=== PATIENT | female | born 1955 | race Caucasian/White ===

== ENCOUNTER 2019-05-23 21:04 | Emergency (ER) | payer OTHER ==
[~2019-05-23] VITALS: Ht 165.1 cm; Wt 74.8 kg
[2019-05-23] MEDS ORDERED: NORCO 5-325 TA1 EAC1 PO (22:39)
[2019-05-23 23:23] VITALS: BP 130/86
== END 2019-05-23 23:24 | disposition home or self-care (01) ==
LOC: ER 21:04
DX: S92.212A Displaced fracture of cuboid bone of left foot, initial encounter for closed fracture (principal); S93.402A Sprain of unspecified ligament of left ankle, initial encounter; W01.0XXA Fall on same level from slipping, tripping and stumbling without subsequent striking against object, initial encounter; Y93.89 Activity, other specified; Y92.89 Other specified places as the place of occurrence of the external cause; Y99.8 Other external cause status